=== PATIENT | female | born 2005 | race Caucasian/White ===

== ENCOUNTER 2024-02-24 22:30 | Outpatient (CLI) | payer SELFPAY | END 2024-02-24 22:57 | LOC: FBPOP 22:30 | PROVIDERS: ATTEND Obstetrics & Gynecology | CPT/HCPCS: 99203 ==

== ENCOUNTER 2024-06-15 08:54 | Inpatient (IN) | payer BC ==
[2024-06-15] MEDS ORDERED: METHYLERGONOVINE 0.2 MG/ML 1 ML AMP IM PRN (09:29)
[2024-06-15] MEDS ORDERED: OXYTOCIN 10 UNIT/ML 1 ML VIAL IM PRN (09:29)
[2024-06-15] MEDS ORDERED: TERBUTALINE 1 MG/ML VIAL SQ PRN (09:29)
[2024-06-15] MEDS ORDERED: TRANEXAMIC 1,000 MG/100ML-NACL 1,000 MG in EMPTY BAG 1 BAG IV PRN (09:29)
[2024-06-15] MEDS ORDERED: CARBOPROST TROMETHAMINE 250 MCG/ML 1 ML AMP IM PRN (09:29)
[2024-06-15] MEDS ORDERED: LIDOCAINE 0.5% (PF) 5 MG/ML (50 ML SDV) SQ PRN (09:29)
[2024-06-15] MEDS ORDERED: miSOPROStoL 200 MCG TAB PO PRN (09:29)
[2024-06-15] MEDS ORDERED: miSOPROStoL 200 MCG TAB RECTAL PRN (09:29)
[2024-06-15] MEDS ORDERED: OXYTOCIN 30 UNITS/500 ML NS 30 UNIT in SALINE 1 500ML.BAG IV SCH (09:30)
[2024-06-15] MEDS: LACTATED RINGERS 1,000 ML IV SCH (10:18)
[2024-06-15 10:25] LABS: Basophils % (A) 0 %; Eosinophils # (A) 0.1 k/uL (0-0.7); Eosinophils % (A) 1 %; HCT 36.6 % (34.0-46.0); HGB 12.1 gm/dL (11.4-16.0); Lymphocytes # (A) 2.3 k/uL (1.0-4.8); Lymphocytes % (A) 22 %; MCH 30.7 pg (25.0-35.0); MCHC 32.9 g/dL (31.0-37.0); MCV 93.2 fL (80.0-100.0); Mean Platelet Volume 7.5; Monocytes # (A) 0.6 k/uL (0-1.0); Monocytes % (A) 6 %; Neutrophils # (A) 7.1 k/uL (1.3-7.7); Neutrophils % (A) 69 %; Platelet Count 295 k/uL (150-450); RBC 3.93 m/uL (3.80-5.40); RDW 13.4 % (11.5-15.5); WBC 10.4 k/uL (3.8-10.6)
[2024-06-15 10:49] LABS: Amphetamine Screen,Urine Not Detected (NotDetected); Barbiturate Screen,Urine Not Detected (NotDetected); Benzodiazepines Screen,Urine Not Detected (NotDetected); Cocaine Screen,Urine Not Detected (NotDetected); Methadone Screen, Urine Not Detected (NotDetected); Opiate Screen,Urine Not Detected (NotDetected); Oxycodone Screen, Urine Not Detected (NotDetected); Phencyclidine Screen,Urine Not Detected (NotDetected); Tricyclic Antidepressant,Urine Not Detected (NotDetected); Urn Cannabinoid Scrn Detected (NotDetected)
--- NOTE | 2024-06-15 16:19 | P.PROBDLV ---
Vaginal Delivery Note - . Vaginal Delivery Note: Findings: Viable female at 1600, weight of 6 pounds 14 ounces, Apgars of 9 and 9 at 1 and 5 minutes respectively. This is a 19-year-old 1 para 0 that presented at 38-5/7 weeks in active labor. Patient was admitted to labor and delivery. Amniotomy was performed corneum stained fluid was appreciated. Patient made both good progress through labor. Once completely dilated she began pushing and had a normal spontaneous vaginal delivery of a viable female infant at 1600, weight of 6 pounds 14 ounces, Apgars of 9 and 9 at 1 and 5 minutes respectively. Spontaneous robust cry was noted at . The umbilical cord was doubly clamped and cut, the placenta was delivered spontaneously intact with a three-vessel cord being noted. On inspection of the patient's vaginal vault a first-degree vaginal laceration was appreciated. This was injected with lidocaine and repaired in the usual fashion with 3-0 Rapide. After growth closure hemostasis was appreciated. Uterus was noted to be firm and below the umbilicus. Estimated blood loss 200 cc. All counts noted to be correct x 2 at the end of the delivery. Patient and tolerated delivery well and are resting comfortably.
--- NOTE | 2024-06-15 16:20 | P.HPOB ---
History of Present Illness H&P Date: 06/15/24 Chief Complaint: IUP at 38-5/7 weeks, active labor This is a 19-year-old 1 para 0 at 38-5/7 weeks that presents to labor and delivery in active labor. Patient states she began justin earlier today and they became regular. Patient upon evaluation in triage was noted to be 3/80/-2 with a bulging bag of water. Patient does note good movement denies vaginal bleeding or loss of fluid. Patient has been receiving routine care which has been essentially uncomplicated. On blood work this patient is a blood type of a positive, rubella stat us immune, hepatitis B surface engine negative, HIV negative, RPR is nonreactive, grew beta strep cultures negative. Review of Systems Constitutional: Denies chills, Denies fatigue, Denies fever Ears, nose, mouth and throat: Denies headache Cardiovascular: Denies leg edema Respiratory: Denies dyspnea Gastrointestinal: Denies nausea, Denies vomiting Genitourinary: Reports Past Medical History Past Medical History: No Reported History History of Any Multi-Drug Resistant Organisms: None Reported Past Surgical History: No Surgical Hx Reported Past Anesthesia/Blood Transfusion Reactions: No Reported Reaction Past Psychological History: No Psychological Hx Reported Smoking Status: Never smoker Past Drug Use History: Marijuana Additional Drug Use History / Comment(s): Daily THC use. - Past Family History Mother Family Medical History: No Reported History Medications and Allergies Home Medications Medication Instructions Recorded Confirmed Type Vit No.179/Iron/Folic 1 tab PO ONCE 06/15/24 06/15/24 History [ Tablet] Allergies Allergy/AdvReac Type Severity Reaction Status Date / Time No Known Allergies Allergy Verified 06/15/24 09:05 Exam Osteopathic Statement: *. No significant issues noted on an osteopathic structural exam other than those noted in the History and Physical/Consult. Vital Signs Temp Pulse Resp BP Pulse Ox 06/15/24 09:31 98 F 91 16 146/85 97 06/15/24 09:04 98 F 91 16 146/85 97 Intake and Output 06/14/24 06/15/24 06/15/24 22:59 06:59 14:59 Other: Weight 75.75 kg Targeted physical exam is performed this date General This is a well-nourished well-developed female in no acute distress, breathing is nonlabored, heart has a regular rate and rhythm, abdomen is gravid and appropriate for gestational age correct on cervical exam for myself she is 4/100/-2 station amniotomy is performed and meconium stained fluid is appreciated. heart tones are noted to be category 1 and she is justin every 2 to 3 minutes. Results Result Diagrams: 06/15/24 09:54 Abnormal Lab Results - Last 24 Hours (Table) 06/15/24 Range/Units 09:54 U Marijuana (THC) Screen Detected H (NotDetected) Assessment and Plan (1) Term Current Visit: Yes Status: Acute Code(s): Z34.90 - ENCNTR FOR SUPRVSN OF NORMAL , UNSP, UNSP TRIMESTER SNOMED Code(s): 66056840 (2) Thick meconium stained amniotic fluid Current Visit: Yes Status: Acute Code(s): P96.83 - MECONIUM STAINING SNOMED Code(s): 501359558 Plan: 19-year-old 1 para 0 at 38 and 5 presents with complaints of contractions. Patient was noted to be in labor, amniotomy is performed and meconium stained fluid is appreciated. Options for analgesia are discussed and she will consider.
[2024-06-15] MEDS ORDERED: BENZOCAINE/MENTHOL SPRAY 1 GM/SPRAY AEROSOL TOPICAL PRN (16:37)
[2024-06-15] MEDS ORDERED: diphenhydrAMINE 25 MG CAP PO PRN (16:37)
[2024-06-15] MEDS ORDERED: ZOLPIDEM 5 MG TAB PO PRN (16:37)
[2024-06-15] MEDS ORDERED: HYDROCORTISONE 2.5% RECTAL CREAM 30 GM TUBE RECTAL PRN (16:37)
[2024-06-15] MEDS ORDERED: LANOLIN CREAM 1 GM TUBE TOPICAL PRN (16:37)
[2024-06-15] MEDS ORDERED: diphenhydrAMINE 50 MG CAP PO PRN (16:37)
[2024-06-15] MEDS ORDERED: ACETAMINOPHEN TAB 500 MG TAB PO PRN (16:37)
[2024-06-15] MEDS ORDERED: SIMETHICONE 80 MG CHEWABLE PO PRN (16:37)
[2024-06-15] MEDS ORDERED: diphenhydrAMINE 50 MG/ML 1 ML VIAL IVP PRN ×2 (16:37)
[2024-06-15] MEDS: IBUPROFEN 800 MG TAB PO PRN (16:50)
[2024-06-15] MEDS ORDERED: LABETALOL 200 MG TAB PO PRN (17:40)
[2024-06-15] MEDS: SENNOSIDES-DOCUSATE SODIUM 1 EACH TAB PO SCH (20:47)
[2024-06-16 06:26] LABS: Basophils % (A) 0 %; Eosinophils # (A) 0.1 k/uL (0-0.7); Eosinophils % (A) 1 %; HCT 30.4 % (34.0-46.0); HGB 10.3 gm/dL (11.4-16.0); Lymphocytes # (A) 2.4 k/uL (1.0-4.8); Lymphocytes % (A) 17 %; MCH 31.4 pg (25.0-35.0); MCHC 33.8 g/dL (31.0-37.0); Mean Platelet Volume 8.1; Monocytes % (A) 7 %; Neutrophils # (A) 10.6 k/uL (1.3-7.7); Neutrophils % (A) 73 %; Platelet Count 257 k/uL (150-450); RBC 3.27 m/uL (3.80-5.40); RDW 13.9 % (11.5-15.5); WBC 14.4 k/uL (3.8-10.6)
--- NOTE | 2024-06-16 12:13 | P.DS ---
Providers Date of admission: 06/15/24 09:26 Expected date of discharge: 06/16/24 Attending physician: Sindy King Primary care physician: Stated None - Discharge Diagnosis(es) (1) Term Current Visit: Yes Status: Acute (2) Thick meconium stained amniotic fluid Current Visit: Yes Status: Acute (3) Status post normal vaginal delivery Current Visit: Yes Status: Acute (4) Obstetrical laceration, first degree Current Visit: Yes Status: Acute Hospital Course: 19-year-old G1 now P1 that presented to labor and delivery in active labor at 38 -5/7 weeks on 06/15. Patient was admitted to labor and delivery and amniotomy was performed thick meconium stained fluid was appreciated. Patient had been receiving routine care which had been essentially uncomplicated. Patient progressed well through labor, declining analgesia. Patient progressed to complete began pushing and had a normal spontaneous vaginal delivery of a viable female infant at 1600, weight of 6 pounds 14 ounces. Apgars of 9 and 9 at 1 and 5 minutes respectively. Patient did sustain a first-degree vaginal laceration during delivery which was repaired in usual fashion. Patient's course has been uneventful. This day #1 she is ambulating and voiding without difficulty. She is tolerating a regular diet without nausea or vomiting. She denies concerns and would like discharge home at 24 hours. Patient Condition at Discharge: Good Plan - Discharge Summary New Discharge Prescriptions: No Action Vit No.179/Iron/Folic [ Tablet] 1 tab PO ONCE Discharge Medication List Vit No.179/Iron/Folic [ Tablet] 1 tab PO ONCE 06/15/24 [History] Follow up Appointment(s)/Referral(s): Sindy King DO [Doctor of Osteopathic Medicine] - 6 Weeks Patient Instructions/Handouts: Vaginal Delivery (DC), Vaginal Delivery (GEN) Activity/Diet/Wound Care/Special Instructions: No tub baths or intercourse until 6 weeks post , [id number] ibuprofen 600 mg or 3 tablets every 6 hours as needed for pain. Routine post check at 6 weeks, should she have any concerns prior to this appointment she is urged to call the office. Discharge Disposition: HOME SELF-CARE
[2024-06-16 17:22] VITALS: BP 145/93; PULSE 98; RESP 15; TEMP 98.6
--- NOTE | 2024-06-18 13:37 | P.MSEPDOC ---
Presenting Problems - Arrival Data Date of Arrival on Unit: 06/15/24 Time of Arrival on Unit: 09:22 Mode of Transport: Ambulatory - Complaint OB-Reason for Admission/Chief Complaint: Possible Onset of Labor Medical History - Information : 1 Para: 0 Term: 0 : 0 Abortions: Spontaneous or Elective: 0 Number of Living Children: 0 - Gestational Age Gestational Age by HAI (wks/days): 38 Weeks and 5 Days Review of Systems - Review of Systems Constitutional: No problems Breast: No problems ENT: No problems Cardiovascular: No problems Respiratory: No problems Gastrointestinal: No problems Genitourinary: No problems Musculoskeletal: No problems Neurological: No problems Skin: No problems Vital Signs - Temperature Temperature: 98.6 F Temperature Source: Oral - Pulse Right Brachial Pulse Rate: 98 Pulse Assessment Method: Pulse Oximetry - Respirations Respiratory Rate: 15 Oxygen Delivery Method: Room Air O2 Sat by Pulse Oximetry: 97 - Blood Pressure Right Arm Blood Pressure: 145/93 Blood Pressure Mean: 110 Blood Pressure Source: Automatic Cuff Medical Screen Scoring - Cervical Exam Dilation (cm): 3 Effacement (%): 80 Station: -2 - Uterine Contractions Frequency From (mins): 2 Frequency To (mins): 3 Duration From (seconds): 80 Duration To (seconds): 100 Intensity: Mild Resting: Soft to palpation - Assessment - Baby A Baseline FHR: 130 Heart Rate - NICHD Category: Category I (Normal) NST: Reactive Physician Notification - Physician Notified Physician Notified Date: 06/15/24 Physician Notified Time: : Physician: Sindy King New Order Received: Yes - Notification Comment Comment: Dr. King in dept. Report given. notified of BP. Vag exam of /- 2, bag of membranes noted to be firm. CAT 1 FHTS. Contractions q2-3 minutes. Orders received to admit pt under normal labor orders. Maternal Triage Index - Urgent/Priority 2 Urgent Priority 2: Yes Provider Notified: Sindy King Provider Notified Time: 09:22 Criteria Met for Priority 2: Pt c/o of contractions. Pt contraction q2-3 m inutes. Vag exam of /-2. Disposition - Disposition OB Disposition: LDRP Suite Discharge Date: 06/16/24 Discharge Time: 16:50 I agree with the RN Medical Screening Exam: Yes Case reviewed; plan agreed upon as documented in EMR&OBIX.: Yes Diagnosis: FALSE LABOR AT OR AFTER 37 COMPLETED WEEKS OF GESTATION
== END 2024-06-16 16:50 | disposition home or self-care (01) | DRG 806 ==
LOC: FBPOP 08:54 → 4FBP 09:26
PROVIDERS: ADMIT Obstetrics & Gynecology Obstetrics; ATTEND Obstetrics & Gynecology Obstetrics
PROC: 10E0XZZ Delivery of Products of Conception, External Approach (ICD-10-PCS; principal; 2024-06-15)
PROC: 10907ZC Drainage of Amniotic Fluid, Therapeutic from Products of Conception, Via Natural or Artificial Opening (ICD-10-PCS; 2024-06-15)
PROC: 0HQ9XZZ Repair Perineum Skin, External Approach (ICD-10-PCS; 2024-06-15)
DX: O77.0 Labor and delivery complicated by meconium in amniotic fluid (principal); O99.324 Drug use complicating childbirth; Z37.0 Single live birth; F12.90 Cannabis use, unspecified, uncomplicated; O70.0 First degree perineal laceration during delivery; Z3A.38 38 weeks gestation of pregnancy
CPT/HCPCS: 80306; 85025; 86850; 86900; 86901; 99213